=== PATIENT | male | born 1945 | race Caucasian/White ===

== ENCOUNTER → 2016-03-05 | Outpatient (CLI) | payer MEDICARE ==
[~2016-03-05] MED LIST: /WARF25TA OR; ALLOPOW4 PO; CALCIUM CITRATE PO; CITALOPRAM PO; COLA100C2 OR; FISHCAP; FLON1SPR; FLUTICASONE NASAL; OMEP20TA7 OR; PANT40TA2 PO; PERC5TAB8 OR; VITAMIN B PO; VITAMIN C PO; [UNRECOGNIZED DRUG - OTHER] PO
--- NOTE | 2016-03-05 12:50 | REP ---
TWO VIEW CHEST: COMPARISON: 09/30/2010 There is no evidence of acute infiltrate. No pleural effusion is seen. The heart is normal in size. The mediastinal silhouette is unremarkable. The visualized osseous structures are intact. IMPRESSION: No acute pulmonary disease. Signed by Kurt Beck MD 03/05/2016 05:21 P
[2016-03-05 14:02] LABS: MEAN CORPUSCULAR HEMOGLOBIN 30.2 pg (27.0-33.0); MEAN CORPUSCULAR HGB CONC 32.7 g/dl (32.0-36.5); MEAN CORPUSCULAR VOLUME 92.3 fl (80.0-96.0); RED CELL DISTRIBUTION WIDTH 13.2 % (11.5-14.5); WHITE BLOOD COUNT 6.7 K/mm3 (4.0-10.0)
[2016-03-05 14:04] LABS: INR 1.01
[2016-03-05 14:37] LABS: ALBUMIN 3.7 GM/DL (3.2-5.2); ALBUMIN/GLOBULIN RATIO 0.97 (1.00-1.93); ALKALINE PHOSPHATASE 66 U/L (45-117); ALT/SGPT 23 U/L (12-78); ANION GAP 12 MEQ/L (8-16); AST/SGOT 18 U/L (15-37); BILIRUBIN,TOTAL 0.5 MG/DL (0.2-1.0); BLOOD UREA NITROGEN 15 MG/DL (7-18); CALCIUM LEVEL 8.7 MG/DL (8.8-10.2); CARBON DIOXIDE LEVEL 26 MEQ/L (21-32); CHLORIDE LEVEL 104 MEQ/L (98-107); CREATININE FOR GFR 0.89 MG/DL (0.70-1.30); GLOMERULAR FILTRATION RATE > 60.0 (>42); GLUCOSE, FASTING 112 MG/DL (83-110); POTASSIUM SERUM 4.2 MEQ/L (3.5-5.1); SODIUM LEVEL 142 MEQ/L (136-145); TOTAL PROTEIN 7.5 GM/DL (6.4-8.2)
== END ==
LOC: M ADMPAT 10:02
PROVIDERS: ATTEND Orthopaedic Surgery
DX: Z01.818 Encounter for other preprocedural examination (principal); M17.12 Unilateral primary osteoarthritis, left knee; R35.1 Nocturia; E78.2 Mixed hyperlipidemia; M10.9 Gout, unspecified

== ENCOUNTER → 2016-03-05 | Outpatient (CLI) | payer MEDICARE ==
[2016-03-05 14:40] LABS: URIC ACID 4.2 MG/DL (3.5-7.2)
== END ==
LOC: M LAB 11:13
PROVIDERS: ATTEND Family Medicine
DX: Z01.818 Encounter for other preprocedural examination (principal); R35.1 Nocturia; M15.9 Polyosteoarthritis, unspecified; E78.2 Mixed hyperlipidemia; M10.9 Gout, unspecified

== ENCOUNTER 2016-03-18 11:00 | Inpatient (IN) | payer MEDICARE ==
[2016-03-05 10:53] VITALS: BP 120/88
[~2016-03-18] VITALS: Ht 188 cm; Wt 112.5 kg
--- NOTE | 2016-04-02 17:26 | HPE ---
DATE OF ADMISSION: 04/08/2016 HISTORY OF PRESENT ILLNESS: This is a pleasant male with continuing symptomatic left knee osteoarthritis. He has consented for a left total knee arthroplasty per Dr. Doc Henao. Medical optimization per Dr. Philipp Selby was completed and awaiting report. X-rays are consistent with advanced osteoarthritis and deformity. ALLERGIES: None known to drugs. MEDICATION LIST: - allopurinol 300 mg - vitamin C 100 mg - calcium citrate - fish oil 500 mg. - vitamin E succinate. - citalopram hydrobromide 40 mg - pantoprazole sodium 40 mg MEDICAL PROBLEM LIST INCLUDES: 1. Symptomatic left knee osteoarthritis. 2. Gout. 3. History of subarachnoid hemorrhage. 4. History of carcinoma of prostate. 5. Mixed hyperlipidemia. 6. Gastroesophageal reflux disease. 7. Depression. PERTINENT SURGICAL HISTORY: Right total hip arthroplasty in 2010. FAMILY HISTORY: Pertinent for hypertension, arthritis, diabetes, cancer and thyroid disease. SOCIAL HISTORY: He denies smoking. He quit drinking alcohol 15 years ago and denies illicit drugs. REVIEW OF SYSTEMS: Denies chest pain, shortness of breath, dyspnea on exertion, fever, chills, malaise, upper respiratory or urinary tract symptoms. PHYSICAL EXAMINATION: VITAL SIGNS: Height 62, weight 248, temperature 97.4, blood pressure 129/75, pulse 70, respirations 16. GENERAL: He is a pleasant well-developed, well-nourished elderly male in no acute distress. He is alert and orientated times three. Mood and affect are appropriate. EXTREMITIES: Left knee was inspected. It is not effused, ecchymotic or erythematous. Benign noninfectious looking. He has positive medial joint line tenderness with crepitus and irritation through flexion and extension. HEAD: Normal cephalic. NECK: Supple. Negative jugular venous distention (JVD) or bruits. LUNGS: Clear to auscultation. Chest rises symmetrically. ABDOMEN: Bowel sounds times four, soft, nontender. LABORATORY DATA: Lab and diagnostics were reviewed. Chest x-ray showed no acute cardiopulmonary disease as read by Dr. Kurt Beck on 03/05/2016. EKG results as read showed first-degree AV block. No change from 2009; I cannot see who read this study but it is part of Dr. Philipp Selby's clearing note which was obtained and reviewed, so he is optimized. Labs were also reviewed: His glucose fasting was 112, calcium level 8.7, albumin-globulin ratio of 0.97. IMPRESSION: 1. Symptomatic left knee osteoarthritis. 2. The patient consented for left total knee arthroplasty per Dr. Doc Henao. 3. Medical optimization per Dr. Philipp Selby. 4. On-call to operating room (OR) 2 grams intravenous (IV) Kefzol in OR. 5. Sequential compression devices (SCDs) and thromboembolism deterrent stockings (TEDs) in OR. MTDD
[2016-04-08] MEDS ORDERED: ceFAZolin 1GM INJ (J0690) As Ordered ONE ×2 (07:51→07:53)
[2016-04-08] MEDS ORDERED: BUPIVACAINE HCL 0.25% 30 ML VIAL As Ordered ONE (07:51)
[2016-04-08] MEDS ORDERED: TRANEXAMIC ACID 100 MG/ML 10ML VIAL As Ordered ONE ×2 (07:51→07:59)
[2016-04-08] MEDS ORDERED: BUPIVACAINE HCL 0.5% 10 ML VIAL As Ordered ONE (07:51)
[2016-04-08] MEDS ORDERED: EPINEPHrine 1MG/ML INJ 30ML MD-VIAL As Ordered ONE (07:55)
[2016-04-08] MEDS ORDERED: EPINEPHrine 1MG/10ML SYRINGE 1.5IN As Ordered ONE (07:56)
[2016-04-08] MEDS ORDERED: EPINEPHrine INJ 1 MG/ML 1ML VIAL/AMP As Ordered ONE (07:57)
[2016-04-08] MEDS ORDERED: LR 1,000 ML IV SCH ×2 (11:15→15:30)
[2016-04-08] MEDS ORDERED: COUM1TAB17 PO (11:45)
[2016-04-08] MEDS ORDERED: fentaNYL 100 MCG/2 ML INJECTION (J3010) As Ordered ONE ×3 (12:07→13:53)
[2016-04-08] MEDS ORDERED: MIDAZOLAM INJ 2 MG/2 ML VIAL (J2250) As Ordered ONE (12:07)
[2016-04-08] MEDS ORDERED: fentaNYL 100 MCG/2 ML INJECTION (J3010) IV ONE (13:00)
[2016-04-08] MEDS ORDERED: MIDAZOLAM INJ 2 MG/2 ML VIAL (J2250) IV ONE (13:00)
[2016-04-08] MEDS ORDERED: PROPOFOL 200 MG/20 ML VIAL As Ordered ONE (13:53)
[2016-04-08] MEDS ORDERED: MORPHINE PCA 1MG/ML 100ML CADD As Ordered ONE (14:46)
[2016-04-08] MEDS ORDERED: MORPHINE 2 MG/ML 1ML SYRINGE IV PRN (15:30)
[2016-04-08] MEDS ORDERED: PERCOCET 5MG/325MG TAB PO PRN (15:30)
[2016-04-08] MEDS ORDERED: fentaNYL 100 MCG/2 ML INJECTION (J3010) IV PRN (15:30)
[2016-04-08] MEDS ORDERED: METOCLOPRAMIDE INJ 10MG/2ML VIAL (J2765) IV PRN (15:30)
[2016-04-08] MEDS ORDERED: ONDANSETRON 4MG/2ML VIAL (J2405) IV PRN ×2 (15:30→16:00)
[2016-04-08] MEDS ORDERED: EPIDURAL/PCA KEYS XX PRN (16:00)
[2016-04-08] MEDS ORDERED: FLEET ENEMA PR PRN (16:00)
[2016-04-08] MEDS ORDERED: NALBUPHINE HCL 10 MG/ML AMP (J2300) IV PRN (16:00)
[2016-04-08] MEDS ORDERED: NALOXONE INJ 0.4 MG/1 ML VIAL (J2310) IV PRN (16:00)
[2016-04-08] MEDS ORDERED: PATIENT IS CURRENTLY ON AN ON-Q PAIN BUSTER PAIN RELIEF SYSTEM XX SCH (16:00)
[2016-04-08] MEDS ORDERED: ACETAMINOPHEN TAB 650MG DOSE (2X325MG) PO PRN (16:00)
[2016-04-08] MEDS ORDERED: MORPHINE PCA 1MG/ML 100ML CADD IV PRN (16:00)
[2016-04-08] MEDS ORDERED: diphenhydrAMINE INJ 50MG/ML VIAL (J1200) IV PRN (16:00)
[2016-04-08 16:15] VITALS: BP 157/81
[2016-04-08 16:45] VITALS: BP 155/79
[2016-04-08] MEDS: D5W/0.45% SODIUM CHLORIDE 1,000 ML IV SCH ×2 (16:56→23:36)
[2016-04-08] MEDS ORDERED: WARFARIN SOD 5 MG TAB PO ONE (17:00)
[2016-04-08 17:45] VITALS: BP 136/82
--- NOTE | 2016-04-08 17:59 | RO ---
DATE OF PROCEDURE: 04/08/2016 PREOPERATIVE DIAGNOSIS: Left knee varus osteoarthritis. POSTOPERATIVE DIAGNOSIS: Left knee varus osteoarthritis. PROCEDURE: Left total knee replacement. SURGEON: Dr. Doc Henao FIELD TECH: Paige Dyer HISTORY: The patient is a 70-year-old male with severe varus osteoarthritis. FINDINGS AT SURGERY: A #5 femur, a #4 tibia, 10 mm spacer, 38 mm button. All cemented in place. Tourniquet time 43 minutes. There were no intraoperative complications. ATIYA Prajapati, provided assistance to expedite the surgery by retracting vital structures and making cuts under my supervision. The tourniquet time was 43 minutes. The components were all cemented in place and the tibia was a fixed bearing. DESCRIPTION OF PROCEDURE: After adequate spinal anesthesia, a Mendes catheter placed, IV antibiotics were administered. The sequential compression stockings were operative on the down leg. The left leg was prepped and draped. Tourniquet inflated to 300 mmHg, a straight anterior incision made. Bleeding points were controlled with electrocautery. The median parapatellar arthrotomy fashioned, the tibia exposed and then the intramedullary canal opened. A 5 degrees valgus 10 mm cut made, the rest of the cuts made sizing for a #5 femur. Following this, the tibia was cut 4 mm off the bad side and menisci were excised, anterior cruciate ligament (ACL) was excised and osteophytes were trimmed. Following this, the trial components were inserted. Rotation was checked and marked. Tibial preparation was completed. There was no lateral release needed to get patellar tracking. All trial components were removed. Paige Dyer was excused to the back table to mix methylmethacrylate under vacuum while I thoroughly irrigated the bone and dried it in preparation for cementing. Then, the permanent components were malleted into place, excess cement removed, the knee placed in full extension and the patella was cemented and clamped. Following this, the wound was thoroughly irrigated. A PainBuster catheter was threaded into the knee and TXA was instilled into the joint for postoperative coagulation. The knee was then closed with heavy PDS suture. Tenosynovium closed with #2-0 PDS as was the subcu. The skin was closed with surgical clips. A dry dressing was applied, and the patient transferred to recovery room breathing spontaneously having tolerated the procedure well.
[2016-04-08 18:45] VITALS: BP 132/73
[2016-04-08 19:45] VITALS: BP 124/77
[2016-04-08 20:45] VITALS: BP 124/80
--- NOTE | 2016-04-08 21:14 | CR.PDOC ---
[facility] Consultation Consultation DATE OF CONSULTATION: 04/08/16 PRIMARY CARE PHYSICIAN: REFERRING PROVIDER: Dr. Henao ATTENDING PHYSICIAN: Madhu Xiao REASON FOR CONSULTATION/CHIEF COMPLAINT: Medical co-management HISTORY OF PRESENT ILLNESS: This is a 70-year-old male past history of GERD/subarachnoid hemorrhage 11 years ago with no deficits, prostate cancer status post relation, who presents with left knee pain secondary to severe osteoarthritis and status post left knee arthroplasty. We have been consulted for medical comanagement. Patient denies chest pain/SOB/palpitations. Patient denies nausea/vomiting/ abdominal pain. Patient states his left knee pain is well-controlled. Patient denies any complaints. ALLERGIES: Please see below. HOME MEDICATIONS: Please see below. PAST MEDICAL HISTORY: As per HPI PAST SURGICAL HISTORY: H/o right hip surg. FAMILY HISTORY: Non-contributory SOCIAL HISTORY: Denies tobacco illicit drug use. H/o alcohol abuse, quit 14 years ago. REVIEW OF SYSTEMS: HEENT: Denies sore throat/headache CARDIOVASCULAR: Denies chest pain/palpitations RESPIRATORY: No shortness of breath/cough GASTROINTESTINAL: denies nausea/vomiting GENITOURINARY: Denies dysuria/urinary urgency. MUSCULOSKELETAL: Denies myalgias/arthralgias NEUROLOGICAL: Denies any focal weakness Rest of ROS negative. PHYSICAL EXAMINATION: Vitals: (see below) General: No acute distress, laying comfortably in bed. HEENT: Moist mucous membranes. Neck: No JVD or lymphadenopathy Cardiac: RRR, No murmurs Pulm: Clear to auscultation b/l. No wheezing, rhonchi Abd: NT/ND + BS Ext: No edema or cyanosis. Left knee with romy wrap. Distal pulses intact. LABORATORY DATA: Please see below. ASSESSMENT/PLAN: 1. POD 0 s/p left knee arthroplasty, management per ortho. 2. H/o gout - cont home meds 3. H/o SAH - no deficits 4. H/o prostate ca s/p radiation 5. GERD - cont PPI DVT prophylaxis- per orthopedics Patient be followed by Dr. Charlene Love starting 04/09/2016 at 7 AM. Vital Signs/I&O Vital Signs Date Time Temp Pulse Resp B/P Pulse Ox O2 Delivery O2 Flow Rate FiO2 04/08/16 18:45 96.0 60 14 132/73 96 Nasal Cannula 2.0 Laboratory Data Labs 24H Laboratory Tests 2 04/08/16 20:48: Allergies Coded Allergies: No Known Drug Allergy (Verified Allergy, Unknown, 06/04/12) Home Medications Scheduled ([Allopurinol]) 300 MG PO DAILY (Reported) ([Allopurinol]) 100 MG PO DAILY (Reported) ([Citalopram]) 20 MG PO DAILY (Reported) ([Vitamin B ]) 1,000 MG PO DAILY (Reported) ([Calcium Citrate]) 2 TAB PO DAILY (Reported) ([Vitamin C]) 1,000 MG PO DAILY (Reported) Pantoprazole Sodium (Pantoprazole Sodium) 40 Mg Tab 40 MG PO DAILY (Reported) Warfarin Sod (Coumadin) 5 Mg Tab 5 MG PO 1T (Reported) Scheduled PRN (Flonase Allergy Relief) 50 Mcg/Act Spr 50 MCG NA PRN PRN PRN NASAL CONGESTION ( Reported) Miscellaneous Medications ([Fish Oil]) 1,200 (Reported) MADHU SOTELO MD Apr 08, 2016 21:14
[2016-04-08 21:16] LABS: MEAN CORPUSCULAR HEMOGLOBIN 30.9 pg (27.0-33.0); MEAN CORPUSCULAR VOLUME 93.5 fl (80.0-96.0); RED CELL DISTRIBUTION WIDTH 13.4 % (11.5-14.5); WHITE BLOOD COUNT 11.7 K/mm3 (4.0-10.0)
[2016-04-08 21:24] LABS: ANION GAP 7 MEQ/L (8-16); BLOOD UREA NITROGEN 13 MG/DL (7-18); CALCIUM LEVEL 8.5 MG/DL (8.8-10.2); CARBON DIOXIDE LEVEL 28 MEQ/L (21-32); CHLORIDE LEVEL 106 MEQ/L (98-107); CREATININE FOR GFR 1.09 MG/DL (0.70-1.30); GLOMERULAR FILTRATION RATE > 60.0 (>42); GLUCOSE, FASTING 160 MG/DL (83-110); POTASSIUM SERUM 4.2 MEQ/L (3.5-5.1); SODIUM LEVEL 141 MEQ/L (136-145)
[2016-04-09 00:45] VITALS: BP 127/79
[2016-04-09 04:45] VITALS: BP 131/79
[2016-04-09] MEDS: D5W/0.45% SODIUM CHLORIDE 1,000 ML IV SCH (05:38)
[2016-04-09] MEDS ORDERED: ONDANSETRON 4 MG TAB (S0181) PO PRN (06:30)
[2016-04-09] MEDS ORDERED: PERCOCET 5MG/325MG TAB PO PRN (06:30)
[2016-04-09 06:48] LABS: MEAN CORPUSCULAR HEMOGLOBIN 30.3 pg (27.0-33.0); MEAN CORPUSCULAR HGB CONC 32.7 g/dl (32.0-36.5); MEAN CORPUSCULAR VOLUME 92.6 fl (80.0-96.0); RED CELL DISTRIBUTION WIDTH 13.4 % (11.5-14.5); WHITE BLOOD COUNT 14.4 K/mm3 (4.0-10.0)
[2016-04-09 06:54] LABS: INR 1.14
[2016-04-09] MEDS ORDERED: dexameTHASONE 10 MG/1 ML VIAL PRES.FREE (J1100) ONE (07:28)
[2016-04-09] MEDS ORDERED: ROPIvacaine 0.5% 30 ML INJECTION (J2795) ONE (07:28)
[2016-04-09] MEDS ORDERED: LIDOCAINE 1% MDV 20ML VIAL ONE (07:28)
[2016-04-09] MEDS: PANTOPRAZOLE 40MG TAB (PROTONIX) PO SCH (08:15)
[2016-04-09] MEDS: MOM 30ML SUSPENSION UDC PO SCH (08:15)
[2016-04-09] MEDS: SENOKOT S TAB PO SCH ×2 (08:15→20:41)
[2016-04-09] MEDS: MIRALAX *UNIT DOSE* 17GM PACKET PO SCH (08:15)
[2016-04-09 10:00] VITALS: BP 133/74
--- NOTE | 2016-04-09 10:56 | REP ---
AP AND LATERAL LEFT KNEE, TWO VIEWS: HISTORY: Knee replacement. The patient is status post left total knee replacement. There is no acute fracture or dislocation. Subcutaneous air and surgical colette are present in the overlying soft tissue. IMPRESSION: The patient is status post left total knee replacement. There is anatomic alignment. Signed by West Guo MD 04/09/2016 11:16 A
[2016-04-09 14:00] VITALS: BP 143/79
[2016-04-09] MEDS: PERCOCET 5MG/325MG TAB PO PRN ×2 (14:01→23:25)
[2016-04-09] MEDS ORDERED: WARFARIN SOD 5 MG TAB PO ONE (17:00)
[2016-04-09] MEDS ORDERED: MAALOX 30 ML SUSP *UDC PO PRN (17:15)
[2016-04-09 22:00] VITALS: BP 153/69
[2016-04-10 06:00] VITALS: BP 125/72
[2016-04-10 06:59] LABS: INR 1.3
[2016-04-10] MEDS: MOM 30ML SUSPENSION UDC PO SCH (08:10)
[2016-04-10] MEDS: PANTOPRAZOLE 40MG TAB (PROTONIX) PO SCH (08:10)
[2016-04-10] MEDS: SENOKOT S TAB PO SCH (08:10)
[2016-04-10] MEDS: MIRALAX *UNIT DOSE* 17GM PACKET PO SCH (08:10)
[2016-04-10 08:11] LABS: ANION GAP 8 MEQ/L (8-16); BLOOD UREA NITROGEN 19 MG/DL (7-18); CALCIUM LEVEL 7.9 MG/DL (8.8-10.2); CARBON DIOXIDE LEVEL 29 MEQ/L (21-32); CHLORIDE LEVEL 105 MEQ/L (98-107); CREATININE FOR GFR 0.76 MG/DL (0.70-1.30); GLOMERULAR FILTRATION RATE > 60.0 (>42); GLUCOSE, FASTING 98 MG/DL (83-110); POTASSIUM SERUM 3.9 MEQ/L (3.5-5.1); SODIUM LEVEL 142 MEQ/L (136-145)
[2016-04-10] MEDS ORDERED: PERC5TAB6 PO (08:24)
[2016-04-10] MEDS ORDERED: COUM2.5T11 PO (08:24)
[2016-04-10] MEDS ORDERED: ENOXAPARIN 40 MG/0.4 ML SYRINGE (J1650) SC ONE (08:30)
--- NOTE | 2016-04-10 10:31 | IPNPDOC ---
Subjective General Date Seen The patient was seen on 04/09/16. Chief Complaint/HPI The patient is a 70-year-old male admitted with a reason for visit of Left Knee Arthritis. Subjective Events since last encounter no complaints. Objective Physical Examination General Exam: Positive: Alert, No Acute Distress Eye Exam: Positive: Conjunctiva & lids normal, EOMI, PERRLA, Negative: Sclera icteric ENT Exam: Positive: Atraumatic, Mucous membr. moist/pink, Pharynx Normal Neck Exam: Positive: Supple, Negative: JVD, thyromegaly Chest Exam: Positive: Clear to auscultation, Normal air movement Heart Exam: Positive: Normal S1, Normal S2, Rate Normal, Regular Rhythm, Negative: Murmurs, Rubs Abdomen Exam: Positive: Normal bowel sounds, Soft, Negative: Hepatospenomegaly, Tenderness Extremity Exam: Positive: Normal pulses, Negative: Clubbing, Cyanosis, Edema Assessment /Plan Problems Problems: (1) S/P total knee arthroplasty Status: Acute Problem Text: elective for advanced osteoarthritis. pain control and dvt prophylaxis as per ortho protocol. (2) H/O subarachnoid hemorrhage Status: Resolved (3) History of prostate cancer Status: Chronic (4) GERD (gastroesophageal reflux disease) Status: Chronic (5) Gout Status: Chronic Problem Text: continue allopurinol Plan/VTE VTE Prophylaxis Ordered?: Yes Plan/Urinary Catheter Reason for insertion/continuin: Other-document below VS, I&O, 24H, Fishbone Vital Signs/I&O Vital Signs Date Time Temp Pulse Resp B/P Pulse Ox O2 Delivery O2 Flow Rate FiO2 04/09/16 09:00 Room Air 04/09/16 04:45 96.0 63 14 131/79 98 2.0 I&O- Last 24 Hours up to 6 AM 04/09/16 06:00 Intake Total 1490 ml Output Total 2675 ml Balance -1185 ml Laboratory Data 24H LABS Laboratory Tests 2 04/08/16 20:48: Anion Gap 7L, Blood Urea Nitrogen 13, Creatinine 1.09, Sodium Level 141, Potassium Level 4.2, Chloride Level 106, Carbon Dioxide Level 28, Calcium Level 8.5L, Glomerular Filtration Rate > 60.0 04/09/16 06:17: Prothromb Time International Ratio 1.14, Prothrombin Time 14.7H CBC/BMP Laboratory Tests 04/08/16 20:48 Calcium Level 8.5 L, Red Blood Count 4.34, Mean Corpuscular Volume 93.5, Mean Corpuscular Hemoglobin 30.9, Mean Corpuscular Hemoglobin Concent 33.0, Red Cell Distribution Width 13.4 04/09/16 06:17 Red Blood Count 4.27 L, Mean Corpuscular Volume 92.6, Mean Corpuscular Hemoglobin 30.3, Mean Corpuscular Hemoglobin Concent 32.7, Red Cell Distribution Width 13.4 KRISTIN PEREZ MD Apr 09, 2016 13:43
--- NOTE | 2016-04-16 10:02 | DSES ---
DATE OF ADMISSION: 04/08/2016 DATE OF DISCHARGE: 04/10/2016 ATTENDING PHYSICIAN: Dr. Henao ADMITTING DIAGNOSIS: Osteoarthritis left knee. OTHER DIAGNOSES: 1. Gout. 2. elevated lipids. 3. Gastric reflux disease. 4. Depression. 5. History of prostate cancer. 6. History of subarachnoid hemorrhage. DISCHARGE DIAGNOSIS: Osteoarthritis of left knee status post left total knee arthroplasty. OPERATION PERFORMED: Left total knee arthroplasty. HISTORY: This is a pleasant 70-year-old male patient with progressively worsening left knee pain and stiffness. He failed to improve with conservative management. He was admitted for elective knee replacement on the left side. HOSPITAL COURSE: The patient was admitted on day of surgery and underwent the above-listed procedure which was uneventful. He did well in the postoperative period. His hospital course was without complications. He was up with physical therapy per their protocol. His pain was controlled. On day of discharge, he was doing well and weightbearing as tolerated on his left lower extremity. He will use adjusted dose Coumadin and thromboembolic deterrent (DEWAYNE) stockings for 30 days postoperative for deep vein thrombosis (DVT) prophylaxis. He will resume his preoperative medications and diet. He was given instructions to include, but not limited to wound monitoring and activity limitations. He will use oral pain medications for pain control. He will follow up in our office in 7-10 days for surgical followup. Please refer to the medical record for further details.
== END 2016-04-10 11:57 | disposition home health service (06) | DRG 470 ==
LOC: M OR 04-08 11:00 → M MS5PR 04-08 16:00
PROVIDERS: ADMIT Orthopaedic Surgery; ATTEND Orthopaedic Surgery
PROC: 0SRD0J9 Replacement of Left Knee Joint with Synthetic Substitute, Cemented, Open Approach (ICD-10-PCS; principal; 2016-04-08 13:00)
DX: M17.12 Unilateral primary osteoarthritis, left knee (principal); M10.9 Gout, unspecified; E78.2 Mixed hyperlipidemia; F32.9 Major depressive disorder, single episode, unspecified; K21.9 Gastro-esophageal reflux disease without esophagitis; Z79.899 Other long term (current) drug therapy; Z85.46 Personal history of malignant neoplasm of prostate; Z96.642 Presence of left artificial hip joint

== ENCOUNTER → 2022-07-18 | Outpatient (REF) | payer MEDICARE ==
[~2022-07-18] MED LIST changes: -/WARF25TA OR; +COUM1TAB17 PO; +COUM1TAB18 OR; +COUM2.5T17 PO; -PANT40TA2 PO; +PANT40TA29 PO; +PERC5TAB12 PO
== END ==
LOC: M SFHCDERM 17:49
PROVIDERS: ATTEND Nurse Practitioner Family
DX: L57.0 Actinic keratosis (principal)

== ENCOUNTER → 2025-02-01 | Outpatient (REF) | payer MEDICARE ==
[2025-02-01 15:30] LABS: APPEARANCE, URINE CLOUDY (CLEAR); BACTERIA, URINE AUTO 1+ (NEGATIVE); BILIRUBIN, URINE AUTO NEGATIVE (NEGATIVE); BLOOD, URINE BLOOD 3+ (NEGATIVE); GLUCOSE, URINE (UA) AUTO NEGATIVE (NEGATIVE); KETONE, URINE AUTO NEGATIVE (NEGATIVE); LEUKOCYTE ESTERASE, URINE AUTO 3+ (NEGATIVE); NITRITE, URINE AUTO NEGATIVE (NEGATIVE); PROTEIN, URINE AUTO 1+ mg/dL (NEGATIVE); RBC, URINE AUTO TNTC /HPF (0-3); SPECIFIC GRAVITY URINE AUTO 1.006 (1.002-1.035); SQUAMOUS EPITHELIAL CELL UR AU 0 /HPF (0-6); UROBILINOGEN, URINE AUTO 0.2 mg/dL (0.0-2.0); WBC, URINE AUTO 182 /HPF (0-3); YEAST LIKE CELL URINE AUTO SMALL
== END ==
LOC: M SMT 15:07
PROVIDERS: ATTEND Urology
DX: N35.919 Unspecified urethral stricture, male, unspecified site (principal); Z79.899 Other long term (current) drug therapy